=== PATIENT | male | born 1995 | race Caucasian/White ===

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

== ENCOUNTER 2017-05-10 15:51 | Emergency (ER) | payer MEDICAID ==
[~2017-05-10] VITALS: Ht 172.7 cm; Wt 60.0 kg
[2017-05-10 15:53] VITALS: BP 157/78; PULSE 82; RESP 16; TEMP 98.1; O2SAT 98
--- NOTE | 2017-05-10 15:57 | PD ---
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 Hx RA. Denies hx MRSA. Vitals reviewed. Patient seen in triage, awaiting bed placement. Margo Sevilla May 10, 2017 15:57
[2017-05-10] MEDS ORDERED: CEPHALEXIN MONOHYDRATE 500 MG CAP PO ONE (16:15)
[2017-05-10] MEDS ORDERED: IBUPROFEN 800 MG TAB PO ONE (16:15)
[2017-05-10] MEDS ORDERED: SULFAMETHOXAZOLE-TRIMETHOPRIM DS 800-160 MG TAB PO ONE (16:15)
--- NOTE | 2017-05-10 16:20 | PD ---
HPI Chief Complaint: Skin Problem Time Seen by Provider: 16:14 Travel History International Travel<30 days: No Contact w/Intl Traveler<30days: No Traveled to known affect area: No History of Present Illness HPI 21-year-old male presents the emergency department with a tender, erythematous, slightly swollen area to the left base of the thumb. Patient states he had a scratch to the dorsal thumb 3 days ago and has since developed increased erythema, warmth, and swelling with streaking up the wrist on the volar surface. Range of motion is somewhat limited secondary to pain. Patient denies fever, chills, or other constitutional symptoms. Patient denies IV drug use. Pain is currently 8 out of 10. It is worse with movement. He has no pain in the left elbow or left upper arm. Patient has no history of MRSA or known drug allergies. PFSH Past Medical History ADHD: Yes Arthritis: Yes Immunizations Current: Yes ?: Not Social History Alcohol Use: No Tobacco Use: No Substance Use: No Allergies-Medications (Allergen,Severity, Reaction): Coded Allergies: No Known Allergies (Unverified , 05/10/17) Reported Meds & Prescriptions Reported Meds & Active Scripts Active No Active Prescriptions or Reported Medications Review of Systems Except as stated in HPI: all other systems reviewed are Neg General / Constitutional: No: Fever, Chills Eyes: No: Visual changes HENT: No: Headaches Cardiovascular: No: Chest Pain or Discomfort Respiratory: No: Shortness of Breath Gastrointestinal: No: Abdominal Pain Genitourinary: No: Dysuria Musculoskeletal: No: Pain Skin: Positive Lesions (see history present illness.), No Rash Neurologic: No: Weakness Psychiatric: No: Depression Endocrine: No: Polydipsia Hematologic/Lymphatic: No: Easy Bruising Physical Exam Narrative GENERAL: Patient appears distress. SKIN: Warm and dry. Patient has a small abrasion to the dorsal left thumb which appear scabbed over. He has localized erythema extending into the hamate region of the left thumb with streaking into the proximal rest. There is no obvious signs of abscess or pointing. HEAD: Atraumatic. Normocephalic. EYES: Pupils equal and round. No scleral icterus. No injection or drainage. ENT: No nasal bleeding or discharge. Mucous membranes pink and moist. Pharynx is clear. Airway is patent. NECK: Trachea midline. No JVD. CARDIOVASCULAR: Regular rate and rhythm. RESPIRATORY: No accessory muscle use. Clear to auscultation. Breath sounds equal bilaterally. MUSCULOSKELETAL: Extremities without clubbing, cyanosis, or edema. No obvious deformities. Left thumb Range of motion is intact but limited secondary to pain. NEUROLOGICAL: Awake and alert. No obvious cranial nerve deficits. Motor grossly within normal limits. Five out of 5 muscle strength in the arms and legs. Normal speech. PSYCHIATRIC: Appropriate mood and affect; insight and judgment normal. Data Data Last Documented VS Vital Signs Date Time Temp Pulse Resp B/P Pulse Ox O2 Delivery O2 Flow Rate FiO2 05/10/17 15:53 98.1 82 16 157/78 98 Orders Cephalexin (Keflex) (05/10/17 16:15) Sulfamet-Trimeth Ds 800-160 Mg (Bactrim (05/10/17 16:15) Ibuprofen (Motrin) (05/10/17 16:15) [facility] Medical Decision Making Medical Screen Exam Complete: Yes Emergency Medical Condition: Yes Differential Diagnosis Left thumb pain. Left thumb cellulitis. Early abscess. Possible MRSA. Narrative Course Patient is given Bactrim DS by mouth 1 now. Patient is given Keflex 500 mg by mouth now. Patient is given 800 mg ibuprofen by mouth now. Patient will be continued on Bactrim DS twice a day 7 days. Patient is continued on Keflex 500 mg 3 times a day 7 days. Patient is given ibuprofen 800 mg 3 times daily with food #30. Work note for tomorrow. Patient is to rest left hand use heat followed by ice and follow up if symptoms are not improving or worsening as discussed. Diagnosis Primary Impression: Cellulitis of thumb, left Patient Instructions: Cellulitis (ED), General Instructions, MRSA (Methicillin Resistant Staphylococcus Aureus) (ED) Departure Forms: Work Release Enter return to work date: May 12, 2017 Additional Instructions: Patient is given Bactrim DS by mouth 1 now. Patient is given Keflex 500 mg by mouth now. Patient is given 800 mg ibuprofen by mouth now. Patient will be continued on Bactrim DS twice a day 7 days. Patient is continued on Keflex 500 mg 3 times a day 7 days. Patient is given ibuprofen 800 mg 3 times daily with food #30. Work note for tomorrow. Patient is to rest left hand use heat followed by ice and follow up if symptoms are not improving or worsening as discussed. Med/Other Pt SpecificInfo: Prescription(s) given Scripts No Active Prescriptions or Reported Meds Disposition: 01 DISCHARGE HOME Condition: Stable Moo Hall May 10, 2017 16:20
[2017-05-10] MEDS ORDERED: BACT800T5 PO (16:21)
[2017-05-10] MEDS ORDERED: IBUP800T23 PO (16:21)
[2017-05-10] MEDS ORDERED: CEPH500C PO (16:21)
== END 2017-05-10 16:31 | disposition home or self-care (01) ==
LOC: NEPK 15:51
DX: L03.012 Cellulitis of left finger (principal)
CPT/HCPCS: 99284

== ENCOUNTER → 2018-03-13 | Outpatient (CLI) | payer OTHER ==
[~2018-03-13] MED LIST changes: -ADDE15TA PO; -AMOX875T PO; +BACT800T5 PO; +CEPH500C PO; +IBUP1TAB7 PO
--- NOTE | 2018-03-13 20:36 | EKG ---
Date Performed: 03/13/2018 Time Performed: 10:05:06 PTAGE: 22 years EKG: Sinus rhythm . Normal ECG NO PREVIOUS TRACING DOCTOR: James John Interpretating Date/Time 03/13/2018 20:34:24
== END ==
LOC: HCAV 09:58
PROVIDERS: ATTEND Psychiatry & Neurology Child & Adolescent Psychiatry
DX: F90.1 Attention-deficit hyperactivity disorder, predominantly hyperactive type (principal)
CPT/HCPCS: 93005